=== PATIENT | female | born 1985 | race Native Hawaiian/Other Pacific Islander ===

== ENCOUNTER 2017-04-23 13:20 | Emergency (ER) | payer OTHER ==
[~2017-04-23] VITALS: Ht 160 cm; Wt 45.4 kg
[2017-04-23 13:25] VITALS: TEMP 97.5
[2017-04-23 15:20] VITALS: BP 109/67
== END 2017-04-23 15:23 | disposition home or self-care (01) ==
LOC: ED 13:20
DX: L03.116 Cellulitis of left lower limb (principal); S80.862A Insect bite (nonvenomous), left lower leg, initial encounter; L08.9 Local infection of the skin and subcutaneous tissue, unspecified; W57.XXXA Bitten or stung by nonvenomous insect and other nonvenomous arthropods, initial encounter; Y92.098 Other place in other non-institutional residence as the place of occurrence of the external cause
CPT/HCPCS: 96372; 99282; J0696

== ENCOUNTER 2017-12-11 06:53 | Emergency (ER) | payer OTHER ==
[~2017-12-11] VITALS: Ht 160 cm; Wt 45.8 kg
[2017-12-11 07:18] VITALS: BP 153/69; TEMP 99.3
== END 2017-12-11 07:56 | disposition home or self-care (01) ==
LOC: ED 06:53
DX: B86 Scabies (principal)
CPT/HCPCS: 99281

== ENCOUNTER 2017-12-13 18:17 | Outpatient (CLI) | payer OTHER | END 2017-12-13 18:18 | disposition home or self-care (01) | LOC: AMB 18:17 | DX: G40.89 Other seizures (principal) ==

== ENCOUNTER 2017-12-25 10:01 | Emergency (ER) | payer OTHER ==
[~2017-12-25] VITALS: Ht 160 cm; Wt 45.8 kg
[2017-12-25 10:25] VITALS: BP 122/74; TEMP 97.9
[2017-12-25] MEDS ORDERED: CELEXA20 MG PO (10:38)
[2017-12-25] MEDS ORDERED: SEROQUEL100 MG PO (10:39)
== END 2017-12-25 10:45 | disposition home or self-care (01) ==
LOC: ED 10:01
DX: L02.215 Cutaneous abscess of perineum (principal)
CPT/HCPCS: 99281

== ENCOUNTER 2017-12-27 12:50 | Emergency (ER) | payer OTHER ==
[~2017-12-27] VITALS: Ht 160 cm; Wt 45.4 kg
[~2017-12-27 12:50] MED LIST: CELEXA20 MG PO; SEROQUEL100 MG PO
[2017-12-27 12:55] VITALS: BP 107/66; TEMP 97.9
[2017-12-27 13:56] LABS: POTASSIUM 4.9 mmol/L (3.6-5.2); SODIUM 140 mmol/L (136-145)
[2017-12-27 14:15] LABS: PLATELET COUNT 471 K/uL (152-353)
== END 2017-12-27 14:00 | disposition home or self-care (01) ==
LOC: ED 12:50
DX: F19.10 Other psychoactive substance abuse, uncomplicated (principal); R00.1 Bradycardia, unspecified
CPT/HCPCS: 36415; 80053; 80307; 80320; 80329; 81000; 85027; 93005; 99285

== ENCOUNTER 2021-05-01 10:47 | Emergency (ER) | payer OTHER ==
[~2021-05-01] VITALS: Ht 160 cm; Wt 45.4 kg
[2021-05-01 10:56] VITALS: BP 100/48; TEMP 98.6
== END 2021-05-01 11:44 | disposition home or self-care (01) ==
LOC: ED 10:47
DX: B86 Scabies (principal)
CPT/HCPCS: 99282

== ENCOUNTER 2022-03-28 10:32 | Emergency (ER) | payer OTHER ==
[~2022-03-28] VITALS: Ht 160 cm; Wt 45.4 kg
[2022-03-28 10:32] VITALS: BP 104/56; TEMP 98
[2022-03-28] MEDS ORDERED: PREDNISONE20 MG PO (10:58)
[2022-03-28] MEDS ORDERED: AMOX875T8 PO (10:58)
== END 2022-03-28 11:12 | disposition home or self-care (01) ==
LOC: ED 10:32
DX: J02.0 Streptococcal pharyngitis (principal)
CPT/HCPCS: 87651; 99282

== ENCOUNTER 2022-07-11 18:13 | Emergency (ER) | payer OTHER ==
[~2022-07-11 18:13] MED LIST changes: +AMOX875T8 PO; +PREDNISONE20 MG PO
== END 2022-07-11 23:35 | disposition home or self-care (01) ==
LOC: ED 18:13
DX: K29.60 Other gastritis without bleeding (principal)
CPT/HCPCS: 81002; 81025; 99283

== ENCOUNTER 2022-11-21 15:37 | Outpatient (CLI) | payer OTHER | END 2022-11-21 19:00 | disposition home or self-care (01) | LOC: RAD 15:37 | PROVIDERS: ATTEND Nurse Practitioner Family | DX: K59.00 Constipation, unspecified (principal) ==

== ENCOUNTER 2022-11-27 08:39 | Outpatient (CLI) | payer OTHER | END 2022-11-27 19:10 | disposition home or self-care (01) | LOC: US 08:39 | PROVIDERS: ATTEND Nurse Practitioner Family | DX: K80.20 Calculus of gallbladder without cholecystitis without obstruction (principal) ==